=== PATIENT | male | born 1995 | race African-American/Black ===

== ENCOUNTER 2019-07-13 06:57 | Emergency (ER) | payer OTHER ==
[~2019-07-13] VITALS: Ht 190.5 cm; Wt 72.6 kg
[2019-07-13] MEDS ORDERED: PROCHLORPERAZINE EDISYLATE 5 MG/ML 2ML VIAL IV ONE (07:00)
[2019-07-13] MEDS ORDERED: MORPHINE SULFATE 4 MG/ML SYR/VIAL IV ONE (07:00)
[2019-07-13] MEDS ORDERED: PANTOPRAZOLE 40 MG/10 ML VIAL INJ IV STA (07:00)
[2019-07-13] MEDS ORDERED: SODIUM CHLORIDE 0.9% 1,000 ML IVB ONE (07:00)
[2019-07-13 07:56] LABS: Basophils # (auto) 0 uL; Basophils % (auto) 0.4 % (0.0-2.0); Eosinophils # (auto) 0.2 uL; Eosinophils % (auto) 1.9 % (0.0-7.0); Hematocrit 48.2 % (41.0-53.0); Hemoglobin 16.4 g/dL (13.5-17.5); Lymphocytes # (auto) 1.5 uL; Lymphocytes % (auto) 14.4 % (10.0-50.0); Mean Corpuscular Hemoglobin 29.8 pg (28.0-32.0); Mean Corpuscular Volume 87.7 fL (80.0-100.0); Monocytes # (auto) 0.5 uL; Monocytes % (auto) 5.2 % (0.0-12.0); Neutrophils % (auto) 78.1 % (37.0-80.0); Nucleated Red Blood Cells % 0.1 %; Platelet Count (auto) 267 10^3/uL (140-450); Red Cell Distribution Width 14.1 % (11.8-14.3); White Blood Cell 10.2 10^3/uL (4.4-10.8)
[2019-07-13 08:11] LABS: Albumin 5.1 g/dL (3.4-5.0); BUN/Creatinine Ratio 12.4; Calcium 9.9 mg/dL (8.5-10.1)
[2019-07-13 08:14] LABS: Bilirubin, Total 0.6 mg/dL (0.2-1.0); Total Protein 8.9 g/dL (6.4-8.2)
[2019-07-13 08:16] LABS: Potassium 2.9 mmol/L (3.5-5.1)
[2019-07-13] MEDS ORDERED: POTASSIUM CHL 20 Meq TABLET PO ONE (08:30)
[2019-07-13] MEDS ORDERED: POTASSIUM CHL 20MEQ/100ML 100 ML IV ONE (08:30)
[2019-07-13 10:17] VITALS: BP 148/86
== END 2019-07-13 11:31 | disposition home or self-care (01) ==
LOC: ER 06:57 → EDBD 06:57 → ER 11:31
DX: F12.988 Cannabis use, unspecified with other cannabis-induced disorder (principal); I10 Essential (primary) hypertension
CPT/HCPCS: 36415; 74176; 80053; 83690; 85025; 93005; 94761; 96361; 96374; 96375; 99284; C9113; J0780; J2270; J3480; J7030